=== PATIENT | female | born 1960 | race Caucasian/White ===

== ENCOUNTER 2018-08-23 12:10 | Outpatient (CLI) | payer OTHER ==
--- NOTE | 2018-08-23 14:18 | ULT ---
THYROID ULTRASOUND: HISTORY: Thyroid nodule. COMPARISON: None. TECHNIQUE: Sagittal and transverse imaging of the thyroid gland is performed. FINDINGS: The thyroid isthmus measures 0.4 cm. The right thyroid lobe measures 1.5 x 1.4 x 4.6 cm. There is an anechoic focus of peripheral calcifi cation in the right thyroid lobe measuring 0.6 x 0.6 x 0.8 cm. There is a 2nd smaller anechoic focus with calcification in the right thyroid lobe measuring 0.4 x 0.4 x 0.2 cm. Left thyroid lobe measures 4.7 x 1.3 x 1.6 cm. There is an anechoic focus with a peripheral calcific ation measuring 0.5 x 0.3 x 0.4 cm. IMPRESSION: Multiple cystic lesions throughout the left and right thyroid lobe. There are some calcifications pr esent. TR score of 3, mildly suspicious. Followup imaging in 1 year is recommended. POS: OFF
== END 2018-08-23 12:11 | disposition home or self-care (01) ==
LOC: BICULT 12:10
PROVIDERS: ATTEND Internal Medicine
DX: E04.2 Nontoxic multinodular goiter (principal)
CPT/HCPCS: 76536